=== PATIENT | male | born 1940 | race Caucasian/White ===

== ENCOUNTER 2020-07-31 14:13 | Emergency (ER) | payer MEDICARE, OTHER ==
[~2020-07-31] VITALS: Ht 177.8 cm; Wt 95.5 kg
[~2020-07-31 14:13] MED LIST: ASPI81TA83 OR; AVOID; COUM1TAB17 OR; LACT10SO8 PO; LIPI20TA OR; PROS5TAB OR; PROT1TAB2 OR; TRUSOPT OU; travatan OU
[2020-07-31] MEDS ORDERED: XARE20TA PO (14:45)
--- NOTE | 2020-07-31 15:27 | REP ---
INDICATION: hematuria COMPARISON: 04/01/2011. TECHNIQUE: CT Scan of the abdomen and pelvis was performed without intravenous contrast. Sagittal and coronal reconstruction images performed. 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 Liver: Grossly unremarkable. Gallbladder: Unremarkable. Spleen: Grossly unremarkable.. Adrenals: Normal. Pancreas: Grossly unremarkable.. Kidneys: No hydronephrosis or nephrolithiasis. Ureters demonstrate no dilatation, however, there is a 6 mm distal right ureteral calculus.. Small and large bowel: There is sigmoid and lower left colonic diverticulosis without evidence of acute diverticulitis. Few mildly dilated small bowel loops in the right upper quadrant may represent a mild focal ileus. Free fluid: None. Abdominal aorta: No aneurysm. Adenopathy: None. Appendix: Not inflamed. Osseous structures: There are degenerative changes of the spine without compression deformity. Pelvis: No mass. No bladder calculus seen. There are small bilateral inguinal hernias containing noninflamed fat. IMPRESSION: There is a 6 mm calculus in the distal right ureter without evidence of hydroureteronephrosis. No other evidence of urinary tract calculus. Sigmoid and lower left colonic diverticulosis without evidence of acute diverticulitis. A few mildly dilated small bowel loops in the right upper quadrant may represent a mild focal ileus. <Electronically signed by Carmelo Aceves > 07/31/20 [id number]
[2020-07-31 15:32] LABS: BASO # 0.1 10^3/uL (0.0-0.2); BASO % 0.8 % (0.0-1.0); EOS # 0.1 10^3/uL (0.0-0.5); EOS % 2.2 % (0.0-3.0); HEMATOCRIT 46.8 % (42.0-52.0); HEMOGLOBIN 14.9 g/dl (13.5-17.5); LYMPH # 1.4 10^3/uL (1.5-5.0); LYMPH % 21.9 % (24.0-44.0); MEAN CORPUSCULAR HEMOGLOBIN 29.5 pg (27.0-33.0); MEAN CORPUSCULAR HGB CONC 31.8 g/dl (32.0-36.5); MEAN CORPUSCULAR VOLUME 92.7 fl (80.0-96.0); MONO # 0.5 10^3/uL (0.0-0.8); MONO % 8.3 % (0.0-5.0); NEUTROPHILS # 4.2 10^3/uL (1.5-8.5); NEUTROPHILS % 66.6 % (36.0-66.0); PLATELET COUNT, AUTOMATED 166 10^3/uL (150-450); RED BLOOD COUNT 5.05 10^6/uL (4.30-6.10); WHITE BLOOD COUNT 6.4 10^3/uL (4.0-10.0)
[2020-07-31 15:42] LABS: INR 1.24; PROTHROMBIN TIME 15.9 SECONDS (12.5-14.3)
[2020-07-31 15:43] LABS: PARTIAL THROMBOPLASTIN TIME 37.5 SECONDS (24.2-38.5)
[2020-07-31 15:58] LABS: ALBUMIN 4.2 GM/DL (3.2-5.2); BILIRUBIN,DIRECT 0.2 MG/DL (0.0-0.2); BILIRUBIN,TOTAL 0.7 MG/DL (0.2-1.0)
[2020-07-31] MEDS ORDERED: FLOM0.4C39 PO (16:40)
[2020-07-31 16:58] VITALS: BP 160/80
== END 2020-07-31 17:00 | disposition home or self-care (01) ==
LOC: M ED 14:13
DX: N20.1 Calculus of ureter (principal); E78.5 Hyperlipidemia, unspecified; I10 Essential (primary) hypertension; I48.91 Unspecified atrial fibrillation; Z79.899 Other long term (current) drug therapy; Z88.0 Allergy status to penicillin; Z95.5 Presence of coronary angioplasty implant and graft

== ENCOUNTER → 2023-12-16 | Outpatient (REF) | payer OTHER ==
[~2023-12-16] MED LIST changes: +FLOM0.4C39 PO; +XARE20TA PO
== END ==
LOC: M SFHCPLAZ 11:44
PROVIDERS: ATTEND Nurse Practitioner Family
DX: Z53.9 Procedure and treatment not carried out, unspecified reason (principal)

== ENCOUNTER → 2024-12-25 | Outpatient (REF) | payer MEDICARE, OTHER | LOC: M SFHCDERM 18:06 | PROVIDERS: ATTEND Physician Assistant | DX: D48.5 Neoplasm of uncertain behavior of skin (principal) ==

== ENCOUNTER → 2025-03-26 | Outpatient (REF) | payer MEDICARE, OTHER ==
[~2025-03-26] MED LIST changes: -FLOM0.4C39 PO; +TAMS-18 PO
== END ==
LOC: M SFHCDERM 17:59
PROVIDERS: ATTEND Nurse Practitioner Family
DX: D22.9 Melanocytic nevi, unspecified (principal)